=== PATIENT | female | born 1960 | race Native Hawaiian/Other Pacific Islander ===

== ENCOUNTER 2016-06-20 09:28 | Inpatient (IN) | payer OTHER ==
[~2016-06-20 09:28] MED LIST: ALLERGY REL10 MG OR; ALLERGY REL10 MG PO; CITA20TA2 PO; HALO5TAB10 PO; PHEN100C15 PO; TRIHEXYPHEN2 MG PO
== END 2016-07-21 08:00 | disposition still patient (30) ==
LOC: PAVB 09:28
PROVIDERS: ADMIT Internal Medicine
DX: Z51.89 Encounter for other specified aftercare (principal)

== ENCOUNTER 2016-07-21 09:00 | Inpatient (IN) | payer OTHER | END 2016-08-21 10:16 | disposition still patient (30) | LOC: PAVB 09:00 | PROVIDERS: ADMIT Internal Medicine | DX: Z51.89 Encounter for other specified aftercare (principal) ==

== ENCOUNTER 2016-07-30 12:41 | Outpatient (CLI) | payer OTHER | END 2016-07-30 19:16 | disposition home or self-care (01) | LOC: LAB 12:41 | DX: D51.8 Other vitamin B12 deficiency anemias (principal) | CPT/HCPCS: 36415; 82607 ==

== ENCOUNTER 2016-08-21 10:40 | Inpatient (IN) | payer OTHER | END 2016-09-18 09:45 | disposition still patient (30) | LOC: PAVB 10:40 | PROVIDERS: ADMIT Internal Medicine | DX: Z51.89 Encounter for other specified aftercare (principal) ==

== ENCOUNTER 2016-09-18 10:29 | Inpatient (IN) | payer OTHER | END 2016-10-19 08:06 | disposition still patient (30) | LOC: PAVB 10:29 | PROVIDERS: ADMIT Internal Medicine | DX: Z51.89 Encounter for other specified aftercare (principal) ==

== ENCOUNTER 2016-10-19 09:26 | Inpatient (IN) | payer OTHER | END 2016-11-18 09:10 | disposition still patient (30) | LOC: PAVB 09:26 | PROVIDERS: ADMIT Internal Medicine | DX: Z51.89 Encounter for other specified aftercare (principal) ==

== ENCOUNTER 2016-11-06 04:56 | Outpatient (CLI) | payer OTHER | END 2016-11-06 19:02 | disposition home or self-care (01) | LOC: LAB 04:56 | DX: Z16.24 Resistance to multiple antibiotics (principal) | CPT/HCPCS: 87081 ==

== ENCOUNTER 2016-11-18 09:59 | Inpatient (IN) | payer OTHER | END 2016-12-19 09:34 | disposition still patient (30) | LOC: PAVB 09:59 | PROVIDERS: ADMIT Internal Medicine | DX: Z51.89 Encounter for other specified aftercare (principal) ==

== ENCOUNTER 2016-12-19 09:59 | Inpatient (IN) | payer OTHER | END 2017-01-18 15:21 | disposition still patient (30) | LOC: PAVB 09:59 | PROVIDERS: ADMIT Internal Medicine | DX: Z51.89 Encounter for other specified aftercare (principal) ==

== ENCOUNTER 2017-01-13 16:33 | Outpatient (CLI) | payer OTHER | END 2017-01-13 17:40 | disposition home or self-care (01) | LOC: RAD 16:33 | DX: M25.551 Pain in right hip (principal) ==

== ENCOUNTER 2017-01-18 15:40 | Inpatient (IN) | payer OTHER | END 2017-02-18 09:43 | disposition still patient (30) | LOC: PAVB 15:40 | PROVIDERS: ADMIT Internal Medicine | DX: Z51.89 Encounter for other specified aftercare (principal) ==

== ENCOUNTER 2017-01-20 11:15 | Outpatient (CLI) | payer OTHER ==
[2017-01-20 11:37] LABS: PLATELET COUNT 283 K/uL (152-353)
[2017-01-20 11:48] LABS: SODIUM 144 mmol/L (136-145)
== END 2017-01-20 12:15 | disposition home or self-care (01) ==
LOC: LAB 11:15
PROVIDERS: Internal Medicine
DX: I10 Essential (primary) hypertension (principal); R56.9 Unspecified convulsions
CPT/HCPCS: 80053; 80185; 82607; 85027

== ENCOUNTER 2017-02-18 10:33 | Inpatient (IN) | payer OTHER | END 2017-03-21 08:41 | disposition still patient (30) | LOC: PAVB 10:33 | PROVIDERS: ADMIT Internal Medicine | DX: Z51.89 Encounter for other specified aftercare (principal) ==

== ENCOUNTER 2017-02-22 05:05 | Outpatient (CLI) | payer OTHER | END 2017-02-22 06:05 | disposition home or self-care (01) | LOC: LAB 05:05 | DX: Z51.81 Encounter for therapeutic drug level monitoring (principal) | CPT/HCPCS: 80185 ==

== ENCOUNTER 2017-03-21 09:12 | Inpatient (IN) | payer OTHER | END 2017-04-20 10:34 | disposition still patient (30) | LOC: PAVB 09:12 | PROVIDERS: ADMIT Internal Medicine | DX: Z51.89 Encounter for other specified aftercare (principal) ==

== ENCOUNTER 2017-03-27 15:33 | Outpatient (CLI) | payer OTHER | END 2017-03-27 16:35 | disposition home or self-care (01) | LOC: RAD 15:33 | DX: M25.572 Pain in left ankle and joints of left foot (principal); M79.89 Other specified soft tissue disorders ==

== ENCOUNTER 2017-04-20 10:39 | Inpatient (IN) | payer OTHER | END 2017-05-21 12:57 | disposition still patient (30) | LOC: PAVB 10:39 | PROVIDERS: ADMIT Internal Medicine ==

== ENCOUNTER 2017-05-21 13:41 | Inpatient (IN) | payer OTHER | END 2017-06-20 09:20 | disposition still patient (30) | LOC: PAVB 13:41 | PROVIDERS: ADMIT Internal Medicine ==

== ENCOUNTER 2017-06-20 09:40 | Inpatient (IN) | payer OTHER | END 2017-07-21 09:31 | disposition still patient (30) | LOC: PAVB 09:40 | PROVIDERS: ADMIT Internal Medicine ==

== ENCOUNTER 2017-07-21 10:02 | Inpatient (IN) | payer OTHER | END 2017-08-21 09:49 | disposition still patient (30) | LOC: PAVB 10:02 | PROVIDERS: ADMIT Internal Medicine ==

== ENCOUNTER 2017-07-24 06:54 | Outpatient (CLI) | payer OTHER ==
[2017-07-24 08:39] LABS: POTASSIUM 4.2 mmol/L (3.6-5.2); SODIUM 143 mmol/L (136-145)
[2017-07-24 11:07] LABS: PLATELET COUNT 252 K/uL (152-353)
== END 2017-07-24 22:39 | disposition home or self-care (01) ==
LOC: LAB 06:54
PROVIDERS: Internal Medicine
DX: I10 Essential (primary) hypertension (principal); R56.9 Unspecified convulsions
CPT/HCPCS: 80053; 80185; 82607; 85027

== ENCOUNTER → 2017-08-13 11:00 | Outpatient (CLI) | payer OTHER | END | disposition home or self-care (01) | LOC: LAB 11:00 | DX: R50.9 Fever, unspecified (principal) | CPT/HCPCS: 87804 ==

== ENCOUNTER 2017-08-21 10:36 | Inpatient (IN) | payer OTHER | END 2017-09-18 09:19 | disposition still patient (30) | LOC: PAVB 10:36 | PROVIDERS: ADMIT Internal Medicine ==

== ENCOUNTER 2017-09-18 09:54 | Inpatient (IN) | payer OTHER | END 2017-10-19 08:00 | disposition still patient (30) | LOC: PAVB 09:54 | PROVIDERS: ADMIT Internal Medicine ==

== ENCOUNTER 2017-10-19 09:00 | Inpatient (IN) | payer OTHER | END 2017-11-18 09:04 | disposition still patient (30) | LOC: PAVB 09:00 | PROVIDERS: ADMIT Internal Medicine ==

== ENCOUNTER 2017-11-18 09:31 | Inpatient (IN) | payer OTHER | END 2017-12-19 08:53 | disposition still patient (30) | LOC: PAVB 09:31 | PROVIDERS: ADMIT Internal Medicine ==

== ENCOUNTER 2017-12-19 09:18 | Inpatient (IN) | payer OTHER | END 2018-01-18 14:19 | disposition still patient (30) | LOC: PAVB 09:18 | PROVIDERS: ADMIT Internal Medicine ==

== ENCOUNTER 2018-01-18 14:50 | Inpatient (IN) | payer OTHER | END 2018-02-18 08:00 | disposition still patient (30) | LOC: PAVB 14:50 | PROVIDERS: ADMIT Internal Medicine ==

== ENCOUNTER 2018-01-22 12:01 | Outpatient (CLI) | payer OTHER ==
[2018-01-22 12:43] LABS: PLATELET COUNT 231 K/uL (152-353)
[2018-01-22 14:16] LABS: POTASSIUM 4.4 mmol/L (3.6-5.2)
== END 2018-01-22 19:39 | disposition home or self-care (01) ==
LOC: LAB 12:01
PROVIDERS: Internal Medicine
DX: I10 Essential (primary) hypertension (principal); R56.9 Unspecified convulsions
CPT/HCPCS: 80053; 80185; 82607; 85027

== ENCOUNTER 2018-02-18 09:00 | Inpatient (IN) | payer OTHER | END 2018-03-21 10:18 | disposition still patient (30) | LOC: PAVB 09:00 | PROVIDERS: ADMIT Internal Medicine ==

== ENCOUNTER 2018-03-13 14:06 | Outpatient (CLI) | payer OTHER | END 2018-03-13 22:47 | disposition home or self-care (01) | LOC: RAD 14:06 | DX: M54.5 Low back pain (principal) ==

== ENCOUNTER 2018-03-21 10:59 | Inpatient (IN) | payer OTHER | END 2018-04-20 09:20 | disposition still patient (30) | LOC: PAVB 10:59 | PROVIDERS: ADMIT Internal Medicine ==

== ENCOUNTER 2018-04-20 10:09 | Inpatient (IN) | payer OTHER | END 2018-05-21 08:47 | disposition still patient (30) | LOC: PAVB 10:09 | PROVIDERS: ADMIT Internal Medicine ==

== ENCOUNTER 2018-05-21 09:49 | Inpatient (IN) | payer OTHER | END 2018-06-20 08:32 | disposition still patient (30) | LOC: PAVB 09:49 | PROVIDERS: ADMIT Internal Medicine ==

== ENCOUNTER 2018-06-08 14:59 | Outpatient (CLI) | payer OTHER | END 2018-06-08 19:53 | disposition home or self-care (01) | LOC: RAD 14:59 | DX: N95.8 Other specified menopausal and perimenopausal disorders (principal) ==

== ENCOUNTER 2018-06-20 09:14 | Inpatient (IN) | payer OTHER | END 2018-07-21 11:05 | disposition still patient (30) | LOC: PAVB 09:14 | PROVIDERS: ADMIT Internal Medicine ==

== ENCOUNTER 2018-07-21 11:23 | Inpatient (IN) | payer OTHER | END 2018-08-21 10:54 | disposition still patient (30) | LOC: PAVB 11:23 | PROVIDERS: ADMIT Internal Medicine ==

== ENCOUNTER 2018-07-22 05:35 | Outpatient (CLI) | payer OTHER ==
[2018-07-22 06:25] LABS: PLATELET COUNT 249 K/uL (152-353)
[2018-07-22 06:43] LABS: POTASSIUM 4.4 mmol/L (3.6-5.2)
== END 2018-07-22 21:29 | disposition home or self-care (01) ==
LOC: LAB 05:35
PROVIDERS: Internal Medicine
DX: R56.9 Unspecified convulsions (principal); E83.51 Hypocalcemia; I10 Essential (primary) hypertension
CPT/HCPCS: 80053; 80185; 82306; 85027

== ENCOUNTER 2018-08-21 11:12 | Inpatient (IN) | payer OTHER | END 2018-09-18 10:19 | disposition still patient (30) | LOC: PAVB 11:12 | PROVIDERS: ADMIT Internal Medicine ==

== ENCOUNTER 2018-09-18 11:06 | Inpatient (IN) | payer OTHER | END 2018-10-19 10:39 | disposition still patient (30) | LOC: PAVB 11:06 | PROVIDERS: ADMIT Internal Medicine ==

== ENCOUNTER 2018-10-19 11:18 | Inpatient (IN) | payer OTHER | END 2018-11-18 11:16 | disposition still patient (30) | LOC: PAVB 11:18 | PROVIDERS: ADMIT Internal Medicine ==

== ENCOUNTER 2018-11-13 14:23 | Outpatient (CLI) | payer OTHER | END 2018-11-13 22:42 | disposition home or self-care (01) | LOC: RAD 14:23 | DX: M25.551 Pain in right hip (principal); S70.01XA Contusion of right hip, initial encounter; W19.XXXA Unspecified fall, initial encounter ==

== ENCOUNTER 2018-11-18 12:21 | Inpatient (IN) | payer OTHER | END 2018-12-19 08:38 | disposition still patient (30) | LOC: PAVB 12:21 | PROVIDERS: ADMIT Internal Medicine | DX: Z51.89 Encounter for other specified aftercare (principal) ==

== ENCOUNTER 2018-12-09 04:45 | Outpatient (CLI) | payer OTHER | END 2018-12-09 20:00 | disposition home or self-care (01) | LOC: LAB 04:45 | PROVIDERS: Internal Medicine | DX: E78.49 Other hyperlipidemia (principal) | CPT/HCPCS: 36415; 80061 ==

== ENCOUNTER 2018-12-19 09:21 | Inpatient (IN) | payer OTHER | END 2019-01-18 09:37 | disposition still patient (30) | LOC: PAVB 09:21 | PROVIDERS: ADMIT Internal Medicine ==

== ENCOUNTER 2019-01-18 11:23 | Inpatient (IN) | payer OTHER | END 2019-02-18 10:35 | disposition still patient (30) | LOC: PAVB 11:23 | PROVIDERS: ADMIT Internal Medicine ==

== ENCOUNTER 2019-01-19 03:57 | Outpatient (CLI) | payer OTHER ==
[2019-01-19 06:33] LABS: PLATELET COUNT 211 K/uL (152-353); POTASSIUM 3.9 mmol/L (3.6-5.2)
== END 2019-01-19 19:05 | disposition home or self-care (01) ==
LOC: LAB 03:57
PROVIDERS: Internal Medicine
DX: I10 Essential (primary) hypertension (principal); D53.1 Other megaloblastic anemias, not elsewhere classified; G40.89 Other seizures
CPT/HCPCS: 80053; 80185; 82306; 82607; 85027

== ENCOUNTER 2019-02-18 11:13 | Inpatient (IN) | payer OTHER | END 2019-03-21 16:25 | disposition still patient (30) | LOC: PAVB 11:13 | PROVIDERS: ADMIT Internal Medicine ==

== ENCOUNTER 2019-03-18 03:59 | Outpatient (CLI) | payer OTHER | END 2019-03-18 22:29 | disposition home or self-care (01) | LOC: LAB 03:59 | DX: R42 Dizziness and giddiness (principal); R73.9 Hyperglycemia, unspecified | CPT/HCPCS: 82947; 83036 ==

== ENCOUNTER 2019-03-18 07:17 | Inpatient (IN) | payer OTHER ==
[2019-03-18] VITALS (28 sets, daily range): BP systolic 72–125; BP diastolic 38–75; TEMP 97.2–98.8; Ht 165.1 cm; Wt 70.9 kg
[~2019-03-18] VITALS: Ht 165.1 cm; Wt 70.9 kg
[2019-03-18 09:40] LABS: PLATELET COUNT 457 K/uL (152-353)
[2019-03-18 09:50] LABS: POTASSIUM 5.5 mmol/L (3.6-5.2)
--- NOTE | 2019-03-18 10:10 | NUR ---
CRITICAL LAB- GLUCOSE [address] JOSE NOTIFIED. NO ORDERS AT THIS TIME.
--- NOTE | 2019-03-18 12:00 | NUR ---
RECIEVED REPORT FROM SRINIVAS HUITRON RN. PT HAD BEEN IN PCU MOVED TO ICU BED 1. ANNY HERE SITTING WITH PATIENT. IV FLUIDS INFUSING WITHOUT DIFFICULTY. AT 200 ML HR INSULIN DRIP AT 12 UNITS HR. LAB HERE CHECKED BLOOD SUGAR 771. DR JOSE HERE CHECKING ON PATIENT, REPORTED BLOOD SUGAR. VITAL SIGNS IMPROVING B/P 91/58 P90.
--- NOTE | 2019-03-18 13:26 | NUR ---
0810-RECEIVED 59 Y/O WF PATIENT OF DR. JOSE ACCOMPANIED BY STAFF FROM [facility] VIA BED. PT IS OBTUNDED, RESPONDS ONLY TO PAINFUL STIMULI, TACHYPNIC @30 BREATHS PER MINUTE, TACHYCARDIC HR@108, HYPOTENSIVE 72/38. ORDERS RECEIVED FROM LAB RECEIVED FROM [facility] BLOOD GLUCOSE FROM VENOUS STICK 1019 0830-IV STARTED AND BLOOD DRAWN. INSULIN PROTOCOL INITIATED WITH VERBAL FROM . INSULIN DRIP STARTED AT 12UTS/HR. NS STARTED AT 200ML/HR 0845-"HIGH"READING ON FSBS MACHINE-VENOUS BLOOD SENT TO LAB FOR GLUCOSE AND OTHER LABS ORDERED. BLOOD GLUCOSE 1028-VITALS NOTED 0900-IVF'S INFUSING, INSULIN DRIP AT 12U/HR INFUSING 0915-BOLUS NS@ 500CL/HR STARTED-ABG ORDERED 0930-"HIGH" FSBS-PT REMAINS LETHARGIC AND UNRESPONSIVE AT THIS TIME 0945-FAMILY AT BEDSIDE-VITALS NOTED 1000- ASSESSING THE PATIENT-IVF'S INFUSING-NO CHANGE IN NEUROLOGICAL STATUS 1020-ABG RESULTS BACK,VERBAL ORDER FOR 1 AMP BICARB RECEIVED-VITALS NOTED 1038-BICARB GIVEN. 1100-BLOOD GLUCOSE 1040; NOTIFIED.NO NEW ORDERS AT THIS TIME 1130-"HIGH"FSBS-VENOUS SAMPLE DRAWN VITALS NOTED. PATIENT REPOSITIONING SELF IN BED, RESPONDS TO VERBAL STIMULI FROM FAMILY AT THIS TIME-OPENS EYES, NO VERBAL RESPONSE.VITALS NOTED 1145-REPORT GIVEN TO ANATOLIY CORONADO RN
--- NOTE | 2019-03-18 13:32 | NUR ---
PATIENT BEGINNING TO MOVE AROUND MORE. LAB CALLED BLOOD SUGAR RESULTS 669, INSULIN DRIP CONTINUES AT 12 UNITS HR. NS AT 200. ASSISTED PT WITH POSITION CHANGE.
--- NOTE | 2019-03-18 15:24 | NUR ---
PATIENT CONTINUES RESTING IN BED MOVING AROUND A LITTLE MORE. IV FLUIDS CONTINUE INSULIN DRIP CONTINUES AT 12 UNIT HR BLOOD SUGAR 596. NS CONTINUES AT 200 ML HR B/P 93/67
--- NOTE | 2019-03-18 16:25 | NUR ---
CALLED TO DR JOSE RECIEVED NEW ORDERS, REPORT CRITICAL LAB. PATIENT RESTING IN BED MOVING MORE. B/P 113/74, P 100
--- NOTE | 2019-03-18 16:55 | NUR ---
LABS DRAW AGAIN CHECKING BLOOD SUGAR, HAD TO REPEAT CMP RECHECK RESULTS. WILL CALL TO DR JOSE.
[2019-03-18 17:08] LABS: POTASSIUM 3.3 mmol/L (3.6-5.2)
--- NOTE | 2019-03-18 18:01 | NUR ---
CALLED CRITICAL LABS TO DR DMAON MARIN NEW ORDERDS, NOTIFIED PHARMGely MILTON WITH [facility]. CHECK PATIENT SAT UP IN BED TO SEE HOW SHE WAS ABOUT TAKING PO. WILL NOT TAKE ANYTHING BY MOUTH, WILL HAVE TO GIVE MEDS BY IV.
--- NOTE | 2019-03-18 18:44 | NUR ---
SPOKE WITH [facility] BRADY D RECIEVD ORDERS STARTED POTASSIUM 20 MEQ K RIDER TO RUN OVER 2 HRS. NS CHANGED TO 100 ML HR. B/P 109/65, INSULIN DRIP CONTINUES AT 12 UNITS HR BLOOD SUGAR 367. PT RESLESS AT TIMES TURNING IN BED OPENS EYES WHEN NAME CALLED.
--- NOTE | 2019-03-18 19:00 | NUR ---
BS CHECKED PER LAB. PT IS RESTLESS. INSULIN DRIP AT 12 UNITS/HR.
--- NOTE | 2019-03-18 20:00 | NUR ---
BS CHECKED PER LAB. PT IS RESPONSIVE. VITAL SIGNS STABLE.
--- NOTE | 2019-03-18 20:37 | NUR ---
INSULIN DRIP WAS DISCONTINUED. MONITORING BS. PT IS RESPONSIVE. VS STABLE.
--- NOTE | 2019-03-18 21:19 | NUR ---
ANNY CALLED TO CHECK ON PT.
--- NOTE | 2019-03-18 22:00 | NUR ---
BLOOD SUGAR IS 248.
--- NOTE | 2019-03-18 23:00 | NUR ---
BLOOD SUGAR IS 277.
[2019-03-19] VITALS (20 sets, daily range): BP systolic 107–143; BP diastolic 60–94; TEMP 97.6–100.6
--- NOTE | 2019-03-19 | NUR ---
BLOOD SUGAR IS 293.
--- NOTE | 2019-03-19 03:40 | NUR ---
BLOOD SUGAR IS 284.
--- NOTE | 2019-03-19 03:40 | NUR ---
PT IS RESPONSIVE TO VERBAL AND TACTILE STIMULATION. PT IS RESTING. CM WITH SR. BP 134/78.
[2019-03-19 05:23] LABS: PLATELET COUNT 235 K/uL (152-353)
[2019-03-19 05:42] LABS: POTASSIUM 3.4 mmol/L (3.6-5.2)
--- NOTE | 2019-03-19 08:00 | NUR ---
PT LYING IN BED RIGHT SIDE POSTION IN MD STARR AT BEDSIDE, NEW ORDERS GIVEN, NOTED AND CARRIED OUT.
--- NOTE | 2019-03-19 08:30 | NUR ---
PT LYING IN BED SUPINE POSTION IN NAD, CAREGIVER AT BEDSIDE, PT ABLE TO VOCALIZE WITH CARGIVER AND VIA PHONE WITH FRIEND.
--- NOTE | 2019-03-19 09:00 | NUR ---
BREAKFAST ARRIVED, ATTEMPTED TO WAKE PATIENT AND ASSIST WITH BREAKFAST, PT VERBALIZED SHE DOESN'T WANT BREAKFAST. WILL ATTEMPT AT A LATTER TIME. PT WENT BACK TO SLEEP.
--- NOTE | 2019-03-19 11:30 | NUR ---
PASTOR MTZ IN TO SEE PT, HOME THEATER SPECIALIST AT BED SIDE, PT SLEEPING ON RIGHT SIDE IN NAD. PT GIVEN STUFFED BEAR AND PRAYERS.
--- NOTE | 2019-03-19 12:30 | NUR ---
PT VERY LETARGIC, BS CHECKED 338, 8 UNITS NOVOLOG GIVEN SQ. NOTIFIED, MONITOR CLOSE FOR RESULTS.
--- NOTE | 2019-03-19 12:50 | NUR ---
THIS PATIENT HAS 2 DISCHARGE PLANNING D/T TO FIRST ONE ENTERED WAS ON THE WRONG PATIENT.
--- NOTE | 2019-03-19 14:00 | NUR ---
PT LYINING IN BED RESTING WITH EYES CLOSED IN NAD. ANNY AT BEDSIDE, AT BEDSIDE.
[2019-03-19 16:27] LABS: POTASSIUM 4.1 mmol/L (3.6-5.2)
--- NOTE | 2019-03-19 19:35 | NUR ---
RESTING IN BED WITH EYES CLOSED, NO S/S OF PAIN OR DISTRESS NOTED, WILL MONITOR CLOSELY, RAILS UP X3, BED IN LOW POSITION, IV INTACT WITH FLUID ONGOING, GORDON PATENT DRAINING TO BEDSIDE, VITALS BEING MONITORED.
--- NOTE | 2019-03-19 22:20 | NUR ---
PT AWAKE LAYING IN BED WITH NO DISTRESS NOTED, IV INTACT, GORDON PATENT, VITALS BEING MONITORED, GAVE PT FEW SIPS OF DRINK, WILL MONITOR CLOSELY, RAILS UP X3, BED IN LOW POSITION.
[2019-03-20] VITALS (23 sets, daily range): BP systolic 123–159; BP diastolic 72–100; TEMP 98.2–100.9
--- NOTE | 2019-03-20 00:10 | NUR ---
RESTING IN BED WITH EYES CLOSED, NO S/S OF PAIN OR DISTRESS NOTED, IV INTACT TO R WRIST WITH 1/2 NS INFUSING AT 100ML/HR, RESP RATE IN MID 20s NONLABORED, ON ROOM AIR WITH SAT OF 97-98%, GORDON PATENT DRAINING TO BEDSIDE, VITALS BEING MONITORED AND PHYSICAL EDUCATION SPECIALIST IN USE, WILL MONITOR CLOSELY, RAILS UP X3, BED IN LOW POSITION.
--- NOTE | 2019-03-20 01:30 | NUR ---
GAVE PRN TYLENOL 65MG SUP PER RECTUM, WILL MONITOR TEMP CLOSELY.
--- NOTE | 2019-03-20 02:30 | NUR ---
AXILLARY TEMP IS NOW 100.4 SINCE PRN TYLENOL GIVEN RECTALLY, WILL CONTINUE TO MONITOR CLOSELY.
--- NOTE | 2019-03-20 03:50 | NUR ---
RESTING WITH EYES CLOSED, NO S/S OF DISTRESS NOTED, IV INTACT WITH FLUID ONGOING, VITALS BEING MONITORED, GORDON PATENT DRAINING TO BEDSIDE, TEMP IS NOW 99.3 AXILLARY, PT WANTING SOME "DR. ERIC" GAVE PT FEW SIPS OF DIET DR. ERIC THAT HER FAMILY BROUGHT HER. WILL MONITOR CLOSELY, RAILS UP X3, BED IN LOW POSITION, ENCOURAGED TO CALL NEEDED.
--- NOTE | 2019-03-20 07:00 | NUR ---
PT RESTING QUIETLY WITH EYES CLOSED. NO C/O AT THIS TIME.
--- NOTE | 2019-03-20 09:00 | NUR ---
DR JOSE IN TO SEE PT. FAMILY/GUARDIAN AT FEEDING PT BREAKFAST.
--- NOTE | 2019-03-20 11:30 | NUR ---
PT DRINKING COFFEE WITH THE ASSISTANCE OF FAMILY.
[2019-03-20 11:45] LABS: PLATELET COUNT 150 K/uL (152-353)
[2019-03-20 11:58] LABS: POTASSIUM 4.3 mmol/L (3.6-5.2)
--- NOTE | 2019-03-20 12:14 | NUR ---
PHONE CALL TO DR TIGIST JOSE X2,NO ANSWER. UNABLE TO LEAVE A MESSAGE. WILL CALL BACK TO REPORT LABS. PT ASLEEP, AWAKENS WHEN IS HER TEMP IS IS TAKEN & SAYS 'COFFEE, I WANT COFFEE.' BEFORE COFFEE IS GIVEN TO PT,PT BACK TO SLEEP.
--- NOTE | 2019-03-20 12:30 | NUR ---
PT MEDICATED WITH NOVOLOG 8U SQ PER PROTOCOL.
--- NOTE | 2019-03-20 13:24 | NUR ---
PT AWAKE & DRINKING COFFEE WITH ASSISTANCE. REFUSES TO EAT ANY LUNCH. REFUSES TO GET UP IN A CHAIR. PT STATES' I DON'T FEEL LIKE IT'. PT DEIES ANY PAIN AT THIS TIME.
--- NOTE | 2019-03-20 15:32 | NUR ---
PHONE CALL TO DR JOSE,'HE HAD RETURNED CALL EARLIER BUT WAS TOLD WE DIDN'T NEED HIM BY THE MED SURG SENIOR GRANT WRITER.'LABS CALLED TO HIM FROM 1205PM. REPORTED TO HIM NOVOLOG 8U GIVEN FOR BS 499. ANION GAP OF 20, BS 499, BUN 57,CREATININE 2.5,CHLORIDE 120,[id number] 13. REPORTED WELL CBC & OTHER LABS ON CMP. REPORTED FSBS AT 1443 OF 413 & RE-CK BS BY LAB 480. NEW ORDERS. URINE FOR KETONES OBTAINED & TO LAB.
--- NOTE | 2019-03-20 17:00 | NUR ---
CAL AREA BACK LEGS FACE BATHED. ADULT BRIEF CHANGED. LINEN CHANGED.
--- NOTE | 2019-03-20 17:08 | NUR ---
PT SITTING UP IN BED, DRINKING COFFEE WITH ASSISTANCE OF FAMILY.
--- NOTE | 2019-03-20 19:30 | NUR ---
PT APPEARS UPSET/AGITATED, REPEATEDLY CALLING FOR STAFF AND GROANING OUT ALMOST CONSTANTLY, DENIES PAIN AND NO ACUTE DISTRESS NOTED, PT REASSURED AND ENCOURAGED TO TRY TO RELAX AND REST SINCE SHE DID NOT SLEEP LAST NIGHT, CONTINUES TO APPEAR UPSET AND CALLING FOR STAFF. B/P UP SOME, 1899 B/P WAS 155/113, AROUND 1919 RECHECKED B/P 159/100. CONTINUES TO BE REASSURED BY STAFF. 1939 PT REMAINS UPSET/AGITATED ACID CLEANER WILL CALL DR. JOSE.
--- NOTE | 2019-03-20 19:45 | NUR ---
SPOKE WITH DR. JOSE ON PHONE ABOUT PT APPEARING AND ACTING UPSET, REMINDED THAT ALL OF PT'S HOME MEDS HAVE NOT BE RESTARTED SINCE ADMIT. NEW ORDER RECEIVED AT THIS TIME WRITTEN(SEE ORDER SHEET).
--- NOTE | 2019-03-20 21:24 | NUR ---
PT REMAINS AWAKE AND SLIGHTLY AGITATED GROANING OUT AND CALLING STAFF FREQUENTLY TO BEDSIDE FOR DRINK OR STATING SHE CAN NOT SLEEP. NO ACUTE DISTRESS NOTED, PT DENIES ANY PAIN, IV INTACT, GORDON PATENT. EXTERMINATOR HELPER WAS ABLE TO GET PT TO TAKE ALL OF HER NIGHT MEDS EXCEPT FOR COLACE, AFTER FIRST FEW PILLS GIVEN PT DID NOT WANT TO TAKE MORE BUT ENCOURAGED PT TO TAKE THEM DUE TO MEDS WERE FOR SEIZURES, PT HOLDING CUP ON HER OWN AND DRINKING DRINK SLOWLY WITH PILLS THEN WOULD STATE SHE COULD NOT REACH DRINK TO HER MOUTH, EXTERMINATOR HELPER ENCOURAGED PT AND REASSURED HER THEN PT STARTED DRINKING DRINK ON HER OWN AGAIN. WILL MONITOR CLOSELY, RAILS UP X3, BED IN LOW POSITION, ENCOURAGED TO CALL NEEDED.
--- NOTE | 2019-03-20 22:30 | NUR ---
PT REMAINS AWAKE AND GROANING OUT AND CALLING FOR STAFF OFTEN, STATES "I CAN NOT SLEEP" OUT LOUD THEN PUBLIC HEALTH REGISTRAR ENCOURAGED PT TO RELAX CLOSE HER EYES AND TRY TO SLEEP A FEW MINUTES LATER PT STATING OUT LOUD AGAIN THAT SHE CAN NOT SLEEP. PUBLIC HEALTH REGISTRAR HAS ASKED PT WHAT IS WRONG MULTIPLE TIMES AND ENCOURAGED PT TO TRY TO REST, NOW PT STATES SHE IS "IN PAIN". WHEN ASKED STATES SHE IS HAVING PAIN IN HER "BACK". GAVE NORCO 5/325MG PO PRN FOR PT'S PAIN. PT TAKING PILL WITH DRINK APPEARS TO HOLD IT IN HER MOUTH THEN SPIT IT OUT ON BED STATING SHE CAN NOT SWALLOW IT. NO S/S OF PROBLEMS NOTED, PILL PLACED IN PUDDING AND PT TOOK PILL WITH NO PROBLEMS, RAILS UP, BED IN LOW POSITION, ENCOURAGED TO CALL NEEDED.
--- NOTE | 2019-03-20 23:15 | NUR ---
PT NOW RESTING QUIETLY IN BED WITH EYES CLOSED, NO S/S OF PAIN OR DISTRESS NOTED, RESP RATE NONLABORED, ON ROOM AIR, IV INTACT WITH FLUID ONGOING, GORDON PATENT DRAINING TO BEDSIDE, VITALS BEING MONITORED, CATTLE STICKER IN USE, WILL MONITOR CLOSELY, RAILS UP X3, BED IN LOW POSITION.
[2019-03-21] VITALS (21 sets, daily range): BP systolic 96–149; BP diastolic 64–98; TEMP 97.9–99.8
--- NOTE | 2019-03-21 02:05 | NUR ---
RESTING QUIETLY IN BED IN POSITION OF COMFORT WITH EYES CLOSED, NO S/S OF PAIN OR DISTRESS NOTED, RESP RATE NONLABORED, ON ROOM AIR WITH SAT OF 96%, GORDON PATENT DRAINING TO BEDSIDE, IV INTACT TO R WRIST WITH 1/2 NS AT 100ML/HR, VITALS BEING MONITORED, PARTS CONTROL CLERK IN USE WITH RATE OF 65 NOTED, WILL MONITOR CLOSELY, RAILS UP X3, BED IN LOW POSITION.
--- NOTE | 2019-03-21 04:50 | NUR ---
PT AWAKE GROANING OUT OFF AND ON AND WANTING HER DRINK, PT C/O PAIN TO HER BACK, GAVE NORCO 5/325MG PO PRN FOR PAIN, WILL MONITOR CLOSELY, RAILS UP X3, BED IN LOW POSITION, IV INTACT, GORDON PATENT, RESP RATE NONLABORED, O2 SAT 95% ON ROOM AIR, VITALS BEING MONITORED, DIRECTOR GEOPHYSICAL LABORATORY IN USE.
--- NOTE | 2019-03-21 05:37 | NUR ---
REMAINS AWAKE BUT NO S/S OF PAIN OR DISTRESS, NO REACTIONS NOTED TO PRN MEDICATION.
--- NOTE | 2019-03-21 05:48 | NUR ---
RESTING WITH EYES CLOSED, NO S/S OF PAIN OR DISTRESS NOTED, WILL MONITOR CLOSELY, RAILS UP, BED IN LOW POSITION.
--- NOTE | 2019-03-21 07:15 | NUR ---
PT RESTING ON R SIDE WITH EYES CLOSED. RESP EVEN & UNLABORED. HEART MONITOR WITH NSR. O2 SAT 95% ON RM AIR, GORDON TO BSD WITH MED YELLOW URINE.
[2019-03-21 09:00] LABS: PLATELET COUNT 138 K/uL (152-353)
--- NOTE | 2019-03-21 09:00 | NUR ---
PT IN HF. FAMILY/GUARDIAN AT BS FEEDING PT BREAKFAST. PT APPEARS MORE ALERT & WHEN ASKED HOW SHA FEELS,PT STATES' I FEEL BETTER'.
[2019-03-21 09:16] LABS: POTASSIUM 3.7 mmol/L (3.6-5.2)
--- NOTE | 2019-03-21 10:00 | NUR ---
PT UP TO CHAIR AT BS WITH ASSISTANCE. SL UNSTEADY & 'WEAK' PER PT.
--- NOTE | 2019-03-21 12:30 | NUR ---
PT REFUSED TO EAT ANYTHING 'JUST MY PINEAPPLE'. PT FED PINEAPPLE CHUNKS. USING SIPPY CUP HERSELF TO DRINK. UP IN CHAIR. ENCOURAGED TO SHIFT SELF IN CHAIR REGULARLY.
--- NOTE | 2019-03-21 13:45 | NUR ---
DR TIGIST JOSE IN TO SEE PT.NEW ORDERS.
--- NOTE | 2019-03-21 15:10 | NUR ---
REPORTED TO DR JOSE PT WITH NO BM SINCE . ABD SOFT BUT SL DISTENDED WITH GOOD BS. 'WILL WAIT & RE-EVALUATE TOMORROW' PER DR JOSE.
--- NOTE | 2019-03-21 16:36 | NUR ---
PT FED SUGAR FREE ICECREAM AT HER REQUEST. PT HAS ALSO DRANK OSCAR TAI OJ. PT HAD ASKED DR JOSE EARLIER IF SHE COULD HAVE OJ & HE SAID,' SURE YOU CAN'.
--- NOTE | 2019-03-21 17:48 | NUR ---
PT WITH FSBS 427, LAB NOTIFIED OF NEED FOR STAT GLUCOSE.
--- NOTE | 2019-03-21 18:35 | NUR ---
BS RE CK PER LAB 428. CALLED TO DR TIGIST JOSE. NEW ORDERS. PT MEDICATED WITH 10U NOVOLOG SQX1. FAMILY/GUARDIAN AT BS FEEDING PT. DISCUSSED BS & DIET. GUARDIAN EXPLAINED TO PT THAT SHE WAS A DIABETIC & WOULD HAVE TO LEARN TO EAT LIKE A DIABETIC & WOULD HAVE TO DRINK MORE WATER.
--- NOTE | 2019-03-21 19:50 | NUR ---
PT AWAKE SITTING UP IN RECLINER/AMARIS CHAIR WATCHING TV WITH FAMILY AT BEDSIDE, NO S/S OF PAIN OR DISTRESS NOTED, RESP RATE NONLABORED/NORMAL, ON ROOM AIR, LUNGS CLEAR TO AUSCULTATION, BS+, GORDON PATENT DRAINING TO BEDSIDE WITH YELLOW URINE NOTED IN BAG, 22G IV INTACT TO R WRIST WITH 1/2 NS INFUSING AT 100ML/HR, RADIAL AND PEDAL PULSES INTACT, VITALS BEING MONITORED, FAMILY AND STAFF ENCOURAGING PT TO DRINK WATER, PT APPEARS TO BE FEELING BETTER TODAY NOTE PT MORE TALKATIVE WITH STAFF TODAY, WILL MONITOR CLOSELY.
--- NOTE | 2019-03-21 21:00 | NUR ---
PT AWAKE SITTING UP IN RECLINER WITH NO DISTRESS NOTED, TALKING WITH STITCHER STANDARD MACHINE, IV INTACT, GORDON PATENT, RESP RATE NONLABORED, DENIES ANY NEEDS. GAVE NIGHTLY MEDS WITH WATER WITH NO PROBLEMS NOTED. ALSO GAVE NORCO 5/325MG PO PRN FOR C/O BACK AND EPIGASTRIC PAIN(ALSO NOTE PT HAVING ALOT OF GAS). PT ASSISTED FROM RECLINER BACK INTO BED, GAIT VERY WEAK, WILL MONITOR CLOSELY, RAILS UP X3, BED IN LOW POSITION, ENCOURAGED TO CALL NEEDED.
[2019-03-22] VITALS (23 sets, daily range): BP systolic 90–147; BP diastolic 56–92; TEMP 97.8–99.5
--- NOTE | 2019-03-22 00:06 | NUR ---
RESTING QUIETLY IN BED WITH EYES CLOSED, NO S/S OF PAIN OR DISTRESS NOTED, RESP RATE NONLABORED, ON ROOM AIR, VITALS STABLE, IV INTACT, GORDON PATENT, WILL MONITOR CLOSELY, RAILS UP, BED IN LOW POSITION.
--- NOTE | 2019-03-22 02:00 | NUR ---
RESTING IN POSITION OF COMFORT WITH EYES CLOSED, NO S/S OF PAIN OR DISTRESS NOTED, GORDON PATENT, IV INTACT WITH FLUID ONGOING, RESP RATE NONLABORED, ON ROOM AIR WITH SAT OF 95-97%, TELEMETRY IN USE WITH RATE IN 70s, PT REPOSITIONS SELF IN BED WITH LITTLE ASSIST, VITALS BEING MONITORED, WILL MONITOR CLOSELY, RAILS UP X3, BED IN LOW POSITION.
--- NOTE | 2019-03-22 04:05 | NUR ---
RESTING OFF AND ON WITH EYES CLOSED, NO S/S OF PAIN OR DISTRESS NOTED, VITALS BEING MONITORED AND ARE STABLE, RESP RATE NONLABORED, GORDON PATENT, IV INTACT WITH FLUID ONGOING, DEPEND DRY, WILL MONITOR CLOSELY, RAILS UP, BED IN LOW POSITION.
--- NOTE | 2019-03-22 05:25 | NUR ---
PT AWAKE WITH NO DISTRESS NOTED, RESP RATE NONLABORED, ON ROOM AIR, GORDON PATENT DRAINING TO BEDSIDE, IV INTACT TO R WRIST WITH 1/2 NS INFUSING AT 100ML/HR, FIRST SAMPLER IN USE WITH RATE OF 80, PT TALKATIVE WITH STAFF WHO ARE AT BEDSIDE AND LAUGHING/JOKING, VITALS BEING MONITORED CLOSELY, RAILS UP X3, BED IN LOW POSITION, NOTE PT HAS BEEN HAVING LOTS OF GAS TONIGHT BUT NO BM SINCE ADMITTED. WILL MONITOR CLOSELY, RAILS UP X3, BED IN LOW POSITION, ENCOURAGED TO CALL NEEDED.
[2019-03-22 05:43] LABS: PLATELET COUNT 112 K/uL (152-353)
[2019-03-22 06:28] LABS: POTASSIUM 3.6 mmol/L (3.6-5.2)
--- NOTE | 2019-03-22 06:45 | NUR ---
SHIFT REPORT GIVEN FROM VENTURA JUARESRN
--- NOTE | 2019-03-22 07:35 | NUR ---
SHIFT ASSESSMENT COMPLETED AT THIS TIME. HERE AT THE BEDSIDE WITH PATIENT.
--- NOTE | 2019-03-22 08:28 | NUR ---
FAMILY PRESENT AT THE BEDSIDE WITH PATIENT.
--- NOTE | 2019-03-22 09:25 | NUR ---
PATIENT GIVEN PO MEDS AT THIS TIME. PATIENT ASSISTED TO BSC AND TO THE BEDSIDE CHAIR AFTER SHE HAD A SMALL HARD BROWN STOOL. PATIENT UNSTEADY ON HER FEET WHEN TRANSFERRING. FALL PRECAUTIONS IN PLACE.
--- NOTE | 2019-03-22 10:19 | NUR ---
PATIENT IS RESTING WITH EYES CLOSED UP IN THE CHAIR WITH BOTH EXTREMITES ELEVATED. NO ACUTE DISTRESS NOTED.
--- NOTE | 2019-03-22 11:20 | NUR ---
NO ACUTE DISTRESS NOTED. PATIENT IS RESTING QUIETLY WITH EYES CLOSED.
--- NOTE | 2019-03-22 18:00 | NUR ---
ANNY, FAMILY FRIEND HERE TALKING TO PATIENT AND ASSISTING PATIENT WITH MEAL. PATIENT ABLE TO EAT 25%.
[2019-03-23] VITALS (8 sets, daily range): BP systolic 98–1126; BP diastolic 54–86; TEMP 98–99
--- NOTE | 2019-03-23 02:51 | NUR ---
PT WAS ASSISTED UP OUT OF BED TO [facility]. PT HAD SMALL FORMED BROWN STOOL. .
--- NOTE | 2019-03-23 04:33 | NUR ---
PT HAS BEEN UP SITTING IN CHAIR. HAS BEEN SITTING UP FOR APPROX 2 HOURS. PT IS WATCHING TELEVISION AND EXPRESSES THAT SHE WANTS TO GO HOME. PT IS VERY TALKATIVE. PT HAS TOLERATED ICE CREAM AND GLUCERNA. PT ALSO DRANK AND COFFEE.
[2019-03-23 05:27] LABS: PLATELET COUNT 100 K/uL (152-353)
[2019-03-23 05:59] LABS: POTASSIUM 3.7 mmol/L (3.6-5.2)
--- NOTE | 2019-03-23 08:01 | NUR ---
AM ASSESSEMENT DONE PATIENT SITTING UP IN CHAIR. ASSISTED WITH AM CARE WAN'T SOMETHING TO EAT. ASKING FOR SWEETS. TALKED WITH PATIENT ABOUT FOODS, AND THAT SHE MAY HAVE TO LIMIT SWEETS. STATED " MY TASTE IS MESSED UP AND IF I DON'T LIKE IT I'M NOT GOING TO EAT EAT IT". PATIENT RECIEVED COFFEE WITH SPLENDA DRINKING OK. BLOOD SUGAR 372 RECIEVED 7 UNITS NOVOLOG SQ. PT OOB BED SITTING UP IN CHAIR.
--- NOTE | 2019-03-23 08:58 | NUR ---
DR JOSE VISITED, CHECKED PATIENT, RECIEVED NEW ORDERS PT TO GO TO MED SURG FLOOR. MRS MCCORMICK HERE VISITING PATIENT.
--- NOTE | 2019-03-23 09:47 | NUR ---
ASSISTED TO BEDSIDE COMMODE. PASSED BM SOFT BROWN UNFORMED STOOL ASSIST WITH CLEAN UP AND BACK TO BED. BACK TO CHAIR TAKING SIPS PO FLUIDS. REPEAT TO PATIENT WHY SHE CAN'T HAVE SWEET DRINKS. REVIEWED DIABETIC DIET.
--- NOTE | 2019-03-23 11:10 | NUR ---
BLOOD SUGAR 356 RECIEVED 7 UNITS NOVOLOG SQ RIGHT ARM . PT UP IN CHAIR READY TO GO TO MED SURG FLOOR. MOVING TO ROOM 1104
--- NOTE | 2019-03-23 11:53 | NUR ---
PATIENT MOVE TO ROOM 1107 VIA CHAIR ORIENTED TO ROOM. CONTINUES UP IN CHAIR, REMINDED PT TO CALL FOR HELP BEFORE TRYING TO GET UP. REPORT TO MED SURG FLOOR. PATIENT DISCHARGED FROM ICU.
--- NOTE | 2019-03-23 15:15 | NUR ---
DR FOX HERE TALKING WITH PATIENT. STARTED IV 22 GA LEFT AC. LABS DRAWN PT STATED THAT SHE FELT A LITTLE SHORT OF BREATH SATS 100% STARTED O2 AT 2L NC. HOB UP. RECIEVED NEW ORDERS.
[2019-03-24] VITALS: BP 125/71; TEMP 98.4
[2019-03-24 04:00] VITALS: BP 107/64; TEMP 99.2
[2019-03-24 05:46] LABS: POTASSIUM 3.4 mmol/L (3.6-5.2)
[2019-03-24 08:00] VITALS: BP 129/72; TEMP 99.2
[2019-03-24 12:00] VITALS: BP 101/72; TEMP 98
--- NOTE | 2019-03-24 15:08 | NUR ---
[facility], PT TOLERATED WELL, REPORT GIVEN TO LIGIA ON B CARDOSO
== END 2019-03-24 13:40 | DRG 638 ==
LOC: PCU 07:17 → ICU 11:00 → MED/SURG 03-23 12:00
PROVIDERS: ADMIT Internal Medicine
DX: E11.00 Type 2 diabetes mellitus with hyperosmolarity without nonketotic hyperglycemic-hyperosmolar coma (NKHHC) (principal); E87.2 Acidosis; N39.0 Urinary tract infection, site not specified; E87.6 Hypokalemia; E83.39 Other disorders of phosphorus metabolism; I95.89 Other hypotension; F78 Other intellectual disabilities
CPT/HCPCS: 36415; 36600; 80048; 80053; 81000; 81002; 82805; 82947; 83735; 84100; 84443; 85027; 87088; 94760; J1815; J1956; J3480; J3490

== ENCOUNTER 2019-03-21 17:04 | Inpatient (IN) | payer OTHER ==
[~2019-03-21] VITALS: Ht 165.1 cm; Wt 70.3 kg
== END 2019-04-20 09:21 | disposition still patient (30) ==
LOC: PAVB 17:04
PROVIDERS: ADMIT Internal Medicine
DX: E11.65 Type 2 diabetes mellitus with hyperglycemia (principal); M62.81 Muscle weakness (generalized); R13.11 Dysphagia, oral phase; R26.2 Difficulty in walking, not elsewhere classified; Z74.1 Need for assistance with personal care; G40.909 Epilepsy, unspecified, not intractable, without status epilepticus; F71 Moderate intellectual disabilities; F33.9 Major depressive disorder, recurrent, unspecified; F41.9 Anxiety disorder, unspecified; G24.01 Drug induced subacute dyskinesia

== ENCOUNTER 2019-04-20 10:27 | Inpatient (IN) | payer OTHER | END 2019-05-21 11:09 | disposition still patient (30) | LOC: PAVB 10:27 | PROVIDERS: ADMIT Internal Medicine ==

== ENCOUNTER 2019-05-21 11:31 | Inpatient (IN) | payer OTHER | END 2019-06-20 08:00 | disposition still patient (30) | LOC: PAVB 11:31 | PROVIDERS: ADMIT Internal Medicine ==

== ENCOUNTER 2019-06-20 11:12 | Inpatient (IN) | payer OTHER | END 2019-07-21 08:34 | disposition still patient (30) | LOC: PAVB 11:12 | PROVIDERS: ADMIT Internal Medicine ==

== ENCOUNTER 2019-06-29 09:38 | Outpatient (CLI) | payer OTHER | END 2019-06-29 20:55 | disposition home or self-care (01) | LOC: LAB 09:38 | DX: E11.9 Type 2 diabetes mellitus without complications (principal) | CPT/HCPCS: 83036 ==

== ENCOUNTER 2019-07-21 08:49 | Inpatient (IN) | payer OTHER | END 2019-08-21 09:56 | disposition still patient (30) | LOC: PAVB 08:49 | PROVIDERS: ADMIT Internal Medicine ==

== ENCOUNTER 2019-07-27 06:24 | Outpatient (CLI) | payer OTHER ==
[2019-07-27 08:07] LABS: PLATELET COUNT 245 K/uL (152-353)
[2019-07-27 09:47] LABS: POTASSIUM 4.4 mmol/L (3.6-5.2)
== END 2019-07-27 17:00 | disposition home or self-care (01) ==
LOC: LAB 06:24
PROVIDERS: Internal Medicine
DX: G40.89 Other seizures (principal); I10 Essential (primary) hypertension; D64.89 Other specified anemias; M19.90 Unspecified osteoarthritis, unspecified site
CPT/HCPCS: 80053; 80185; 82306; 82607; 85027

== ENCOUNTER 2019-08-21 10:33 | Inpatient (IN) | payer OTHER | END 2019-09-19 13:15 | disposition still patient (30) | LOC: PAVB 10:33 | PROVIDERS: ADMIT Internal Medicine ==

== ENCOUNTER 2019-09-19 13:57 | Inpatient (IN) | payer OTHER | END 2019-10-20 09:41 | disposition still patient (30) | LOC: PAVB 13:57 | PROVIDERS: ADMIT Internal Medicine ==

== ENCOUNTER 2019-09-23 04:53 | Outpatient (CLI) | payer OTHER | END 2019-09-23 21:28 | disposition home or self-care (01) | LOC: LAB 04:53 | DX: E11.65 Type 2 diabetes mellitus with hyperglycemia (principal) | CPT/HCPCS: 83036 ==

== ENCOUNTER 2019-10-20 10:23 | Inpatient (IN) | payer OTHER | END 2019-11-19 09:02 | disposition still patient (30) | LOC: PAVB 10:23 | PROVIDERS: ADMIT Internal Medicine ==

== ENCOUNTER 2019-11-19 10:04 | Inpatient (IN) | payer OTHER | END 2019-12-20 09:11 | disposition still patient (30) | LOC: PAVB 10:04 | PROVIDERS: ADMIT Internal Medicine | CPT/HCPCS: 87635; U0002 ==

== ENCOUNTER 2019-12-20 10:00 | Inpatient (IN) | payer OTHER | END 2020-01-19 10:20 | disposition still patient (30) | LOC: PAVB 10:00 | PROVIDERS: ADMIT Internal Medicine | CPT/HCPCS: 87635; U0002 ==

== ENCOUNTER 2019-12-21 05:52 | Outpatient (CLI) | payer OTHER | END 2019-12-21 19:05 | disposition home or self-care (01) | LOC: LAB 05:52 | DX: E11.65 Type 2 diabetes mellitus with hyperglycemia (principal) | CPT/HCPCS: 83036 ==

== ENCOUNTER 2020-01-19 08:40 | Outpatient (CLI) | payer OTHER | END 2020-01-19 22:03 | disposition home or self-care (01) | LOC: LAB 08:40 | PROVIDERS: Internal Medicine | DX: E78.49 Other hyperlipidemia (principal); E11.9 Type 2 diabetes mellitus without complications | CPT/HCPCS: 80061 ==

== ENCOUNTER 2020-01-19 11:03 | Inpatient (IN) | payer OTHER | END 2020-02-19 09:16 | disposition still patient (30) | LOC: PAVB 11:03 | PROVIDERS: ADMIT Internal Medicine | CPT/HCPCS: 87635; U0002 ==

== ENCOUNTER 2020-01-20 06:43 | Outpatient (CLI) | payer OTHER ==
[2020-01-20 09:09] LABS: POTASSIUM 4.3 mmol/L (3.6-5.2)
[2020-01-20 09:53] LABS: PLATELET COUNT 223 K/uL (152-353)
== END 2020-01-20 19:52 | disposition home or self-care (01) ==
LOC: LAB 06:43
PROVIDERS: Internal Medicine
DX: D53.1 Other megaloblastic anemias, not elsewhere classified (principal); I10 Essential (primary) hypertension; E78.49 Other hyperlipidemia; G24.01 Drug induced subacute dyskinesia; F20.89 Other schizophrenia
CPT/HCPCS: 80053; 80185; 82306; 82607; 85027

== ENCOUNTER 2020-02-19 09:38 | Inpatient (IN) | payer OTHER | END 2020-03-21 12:04 | disposition still patient (30) | LOC: PAVB 09:38 | PROVIDERS: ADMIT Internal Medicine | CPT/HCPCS: 87635; G2023; U0003 ==

== ENCOUNTER 2020-03-21 13:00 | Inpatient (IN) | payer OTHER | END 2020-04-20 11:05 | disposition still patient (30) | LOC: PAVB 13:00 | PROVIDERS: ADMIT Internal Medicine ==

== ENCOUNTER 2020-04-20 13:44 | Inpatient (IN) | payer OTHER | END 2020-05-21 08:00 | disposition still patient (30) | LOC: PAVB 13:44 | PROVIDERS: ADMIT Internal Medicine ==

== ENCOUNTER 2020-05-21 09:00 | Inpatient (IN) | payer OTHER | END 2020-06-20 09:59 | disposition still patient (30) | LOC: PAVB 09:00 | PROVIDERS: ADMIT Internal Medicine; ATTEND Internal Medicine ==

== ENCOUNTER 2020-06-09 14:01 | Outpatient (CLI) | payer OTHER | END 2020-06-09 19:23 | disposition home or self-care (01) | LOC: RAD 14:01 | PROVIDERS: ATTEND Internal Medicine | DX: M19.90 Unspecified osteoarthritis, unspecified site (principal); N95.8 Other specified menopausal and perimenopausal disorders; Z13.820 Encounter for screening for osteoporosis ==

== ENCOUNTER 2020-06-20 11:08 | Inpatient (IN) | payer OTHER | END 2020-07-21 09:03 | disposition still patient (30) | LOC: PAVB 11:08 | PROVIDERS: ADMIT Internal Medicine; ATTEND Internal Medicine ==

== ENCOUNTER 2020-07-21 09:24 | Inpatient (IN) | payer OTHER | END 2020-08-21 14:56 | disposition still patient (30) | LOC: PAVB 09:24 | PROVIDERS: ADMIT Internal Medicine; ATTEND Internal Medicine ==

== ENCOUNTER 2020-07-27 07:36 | Outpatient (CLI) | payer OTHER ==
[2020-07-27 12:52] LABS: POTASSIUM 4.2 mmol/L (3.6-5.2)
[2020-07-27 13:50] LABS: PLATELET COUNT 207 K/uL (152-353)
== END 2020-07-27 21:08 | disposition home or self-care (01) ==
LOC: LAB 07:36
PROVIDERS: ATTEND Internal Medicine
DX: I10 Essential (primary) hypertension (principal); D53.1 Other megaloblastic anemias, not elsewhere classified; F20.9 Schizophrenia, unspecified; G24.01 Drug induced subacute dyskinesia; E78.49 Other hyperlipidemia
CPT/HCPCS: 80053; 80185; 82306; 82607; 85027

== ENCOUNTER 2020-08-21 15:14 | Inpatient (IN) | payer OTHER | END 2020-09-18 09:55 | disposition still patient (30) | LOC: PAVB 15:14 | PROVIDERS: ADMIT Internal Medicine; ATTEND Internal Medicine ==

== ENCOUNTER 2020-09-18 10:18 | Inpatient (IN) | payer OTHER | END 2020-10-19 10:15 | disposition still patient (30) | LOC: PAVB 10:18 | PROVIDERS: ADMIT Internal Medicine; ATTEND Internal Medicine ==

== ENCOUNTER 2020-09-19 12:29 | Outpatient (CLI) | payer OTHER | END 2020-09-19 20:15 | disposition home or self-care (01) | LOC: LAB 12:29 | PROVIDERS: ATTEND Internal Medicine | DX: E11.65 Type 2 diabetes mellitus with hyperglycemia (principal) | CPT/HCPCS: 83036 ==

== ENCOUNTER 2020-10-09 15:38 | Outpatient (CLI) | payer OTHER | END 2020-10-09 21:00 | disposition home or self-care (01) | LOC: LAB 15:38 | PROVIDERS: ATTEND Internal Medicine | DX: L02.211 Cutaneous abscess of abdominal wall (principal) | CPT/HCPCS: 87070; 87077; 87185; 87186; 87205 ==

== ENCOUNTER 2020-10-19 10:36 | Inpatient (IN) | payer OTHER | END 2020-11-18 10:51 | disposition still patient (30) | LOC: PAVB 10:36 | PROVIDERS: ADMIT Internal Medicine; ATTEND Internal Medicine ==

== ENCOUNTER 2020-11-01 10:50 | Outpatient (CLI) | payer OTHER | END 2020-11-01 21:32 | disposition home or self-care (01) | LOC: RAD 10:50 | PROVIDERS: ATTEND Internal Medicine | DX: M54.5 Low back pain (principal) ==

== ENCOUNTER 2020-11-13 13:34 | Outpatient (CLI) | payer OTHER | END 2020-11-13 22:30 | disposition home or self-care (01) | LOC: LAB 13:34 | PROVIDERS: ATTEND Internal Medicine | DX: L02.211 Cutaneous abscess of abdominal wall (principal) | CPT/HCPCS: 87070; 87077; 87185; 87186; 87205 ==

== ENCOUNTER 2020-11-18 11:10 | Inpatient (IN) | payer OTHER | END 2020-12-19 14:39 | disposition still patient (30) | LOC: PAVB 11:10 | PROVIDERS: ADMIT Internal Medicine; ATTEND Internal Medicine ==

== ENCOUNTER 2020-12-19 15:03 | Inpatient (IN) | payer OTHER | END 2021-01-18 08:00 | disposition still patient (30) | LOC: PAVB 15:03 | PROVIDERS: ADMIT Internal Medicine; ATTEND Internal Medicine ==

== ENCOUNTER 2021-01-18 09:00 | Inpatient (IN) | payer OTHER | END 2021-02-18 08:00 | disposition still patient (30) | LOC: PAVB 09:00 | PROVIDERS: ADMIT Internal Medicine; ATTEND Internal Medicine ==

== ENCOUNTER 2021-01-23 07:46 | Outpatient (CLI) | payer OTHER ==
[2021-01-23 09:38] LABS: POTASSIUM 4.4 mmol/L (3.6-5.2)
[2021-01-23 11:46] LABS: PLATELET COUNT 226 K/uL (152-353)
== END 2021-01-23 19:07 | disposition home or self-care (01) ==
LOC: LAB 07:46
PROVIDERS: ATTEND Internal Medicine
DX: D64.89 Other specified anemias (principal); D53.1 Other megaloblastic anemias, not elsewhere classified; G24.01 Drug induced subacute dyskinesia; I10 Essential (primary) hypertension; E78.49 Other hyperlipidemia; F20.89 Other schizophrenia
CPT/HCPCS: 80053; 80061; 80185; 82306; 82607; 85027

== ENCOUNTER 2021-02-18 09:00 | Inpatient (IN) | payer OTHER | END 2021-03-19 04:00 | disposition E | LOC: PAVB 09:00 | PROVIDERS: ADMIT Internal Medicine; ATTEND Internal Medicine ==

== ENCOUNTER 2021-03-13 10:34 | Outpatient (CLI) | payer OTHER | END 2021-03-13 21:47 | disposition home or self-care (01) | LOC: RAD 10:34 | PROVIDERS: ATTEND Internal Medicine | DX: U07.1 COVID-19 (principal) ==

== ENCOUNTER 2021-03-14 13:28 | Outpatient (CLI) | payer OTHER | END 2021-03-14 19:14 | disposition home or self-care (01) | LOC: RAD 13:28 | PROVIDERS: ATTEND Internal Medicine | DX: U07.1 COVID-19 (principal) ==

== ENCOUNTER 2021-03-16 09:06 | Outpatient (CLI) | payer OTHER | END 2021-03-16 21:57 | disposition home or self-care (01) | LOC: INF 09:06 | PROVIDERS: ATTEND Internal Medicine | DX: Z23 Encounter for immunization (principal); U07.1 COVID-19 ==

== ENCOUNTER 2021-03-16 11:07 | Outpatient (CLI) | payer OTHER ==
[2021-03-16 16:36] LABS: POTASSIUM 4.1 mmol/L (3.6-5.2)
== END 2021-03-16 22:00 | disposition home or self-care (01) ==
LOC: RAD 11:07
PROVIDERS: ATTEND Internal Medicine
DX: U07.1 COVID-19 (principal)
CPT/HCPCS: 80053

== ENCOUNTER 2021-03-16 17:31 | Inpatient (IN) | payer OTHER ==
[~2021-03-16] VITALS: Ht 165.1 cm; Wt 72.6 kg
[2021-03-16 17:31] VITALS: BP 114/63; TEMP 100.7
[2021-03-16 18:38] LABS: PLATELET COUNT 167 K/uL (152-353)
[2021-03-16 19:00] LABS: PARTIAL THROMBOPLASTIN TIME 30.1 SECONDS (24.5-33.6)
[2021-03-16 19:03] LABS: POTASSIUM 4.2 mmol/L (3.6-5.2); SODIUM 141 mmol/L (136-145)
[2021-03-16 20:30] VITALS: BP 114/66
[2021-03-16 22:00] VITALS: BP 114/69
[2021-03-16 23:00] VITALS: BP 112/72
--- NOTE | 2021-03-17 00:35 | NUR ---
PT WAS GIVEN TUSSINEX 5 ML PO. PT WITH COUGH.
[2021-03-17 01:47] VITALS: BP 110/79; TEMP 98.8; Ht 165.1 cm; Wt 72.6 kg
[2021-03-17 04:50] LABS: PLATELET COUNT 158 K/uL (152-353)
[2021-03-17 05:31] VITALS: BP 130/64; TEMP 99.2
[2021-03-17 05:41] LABS: POTASSIUM 4.3 mmol/L (3.6-5.2)
[2021-03-17 13:31] VITALS: BP 120/68; TEMP 98.6
[2021-03-17 17:30] VITALS: BP 121/61; TEMP 98.8
--- NOTE | 2021-03-17 21:11 | NUR ---
PT'S SATS ARE 88-90. PT IS WEARING HIGH FLOW OXYGEN AT 100 PERCENT AND NRB AT 15L. PT POSITIVE FOR COVID. PT IN ROOM 1129 CLOSE TO NURSES STATION. PT IS MENTALLY CHALLAGED. PT IS BEING MONITORING PER TELEMENTRY CONSTANTLY. ROCHELLE NICHOLE COMMODITIES MANAGER IS CONSTANTLY MONITORING PT'S O2 SATS AND HR.
[2021-03-17 21:31] VITALS: BP 121/67; TEMP 101.1
[2021-03-18] VITALS: BP 127/67; TEMP 99.6
[2021-03-18 04:00] VITALS: BP 136/70; TEMP 100.5
--- NOTE | 2021-03-18 04:00 | NUR ---
PT'S O2 SATS ARE 85 PERCENT AT THIS PRESENT TIME. PT HAS REPOSITIONED IN BED. MOVED UP IN BED. POSITIONED PT ON HER RIGHT SIDE. PT WAS GIVEN SIPS OF SPRITE.
--- NOTE | 2021-03-18 05:19 | NUR ---
PT HAS BEEN AWAKE THIS SHIFT. PT'S O2 SATS RANGING FROM 78 TO 85 PERCENT. PT IS USING HIGH FLOW OXYGEN AND NRB MASK. PT WITH CM AND NO ECTOPY NOTED. PT HAS TURNED AND REPOSITIONED EVERY 2 HOURS AND PRN. ENCOURAGING PT TO TURN, MOVE, AND TAKE DEEP BREATHS. MONITORING TEMPERATURE AND PT RECEIVED TYLENOL 500 MG PO AROUND 21:30PM. PT'S FAMILY MEMBER ANNY CHINCHILLA CALLED AND WAS GIVEN UPDATE ON PATIENTS STATUS. DR. KIRK VISITED PT AROUND MIDNIGHT AND NEW ORDER FOR NEBULIZERS WAS GIVEN. PT WAS GIVEN SMART VEST THERAPY. PT WAS GIVEN CPT. PT HAS BEEN DRINKING ORANGE SODA AND WATER THROUGHOUT SHIFT. PT'S BRIEF HAS BEEN CHANGED X3. PT NOTED RED AREA TO PT'S LEFT BUTTOCK. SKIN INTACT. PT COMPLAINED OF NAUSEA 1 EVENT AND WS TREATED WITH ZOFRAN 4 MG IVSP. FAMILY MEMBER ANNY STATED TO THIS NURSE THAT SHE DID NOT WANT PT PLACED ON BIPAP. FAMILY MEMBER AWARE THAT PT HAS LOW 02 SATURATIONS. PT IS DNR STATUS. 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
[2021-03-18 05:55] LABS: POTASSIUM 4.1 mmol/L (3.6-5.2)
[2021-03-18 06:01] LABS: PLATELET COUNT 260 K/uL (152-353)
[2021-03-18 08:00] VITALS: BP 139/69; TEMP 99.3
[2021-03-18 12:00] VITALS: BP 137/77; TEMP 98.4
--- NOTE | 2021-03-18 13:54 | NUR ---
Inserted 16 FR barcenas in patient d/t sob. Patient tolerated with no acute distrress noted. Will continue to monitor.
--- NOTE | 2021-03-18 14:04 | NUR ---
0930- Dr Martinez pulled Zofran, 4mg, iv and administered to patient at this time. Zofran, 4mg, IV is scheduled for patient also.
[2021-03-18 16:00] VITALS: BP 150/78; TEMP 100
[2021-03-18 20:00] VITALS: BP 92/54; TEMP 97.4
--- NOTE | 2021-03-18 20:08 | NUR ---
ROUNDS MADE. PT IS A POSITION OF COMFORT. O2 SAT IS 64 PERCENT. MONIIORING CLOSELY. PT IS DNR STATUS. PT WAS ADMITTED WITH COVID.
--- NOTE | 2021-03-18 20:30 | NUR ---
IV SEDATION MEDICATION IS EMPTY. Nena ERNST RN GOING TO PHARMACY TO GET IT. PTS HEART RATE IS 105. O2 SAT IS 56 PERCERT.
--- NOTE | 2021-03-18 22:30 | NUR ---
SPOKE TO ANNY CHINCHILLA. UPDATED HER ON PT'S STATUS NOW. O2 SAT IS 50-54. PT IS USING HIGH FLOW OXYGEN AND NRB. PT IS COVID POSITIVE. PT IS DNR STATUS. RECEIVING NS AT 75 ML/HR VIA PUMP. GORDON CATHETAR INTACT WITH CLEAR URINE DRAINING. THIS NURSE AT BEDSIDE AT PRESENT TIME.
--- NOTE | 2021-03-18 23:01 | NUR ---
UNABLE TO COMPLETE ASSESSMENT. COMPUTER LOCKED ON ADULT ASSESSMENT.
--- NOTE | 2021-03-18 23:01 | NUR ---
PT REPOSITIONED ON HER RIGHT SIDE. CM WITH HR 87 AND PULSE OX IS 50 PERCENT PER MONITOR.
--- NOTE | 2021-03-18 23:13 | NUR ---
O2 SAT IS 44 PERCENT.
--- NOTE | 2021-03-18 23:42 | NUR ---
PT TOOK SIPS OF SODA.
--- NOTE | 2021-03-18 23:51 | NUR ---
PT WAS GIVEN SODA. PT TOLERATED WELL.
[2021-03-19] VITALS: BP 103/80; TEMP 98.5
--- NOTE | 2021-03-19 01:57 | NUR ---
ANNY CHINCHILLA CALLED AND WAS INFORMED ABOUT PATIENT STATUS.
--- NOTE | 2021-03-19 05:26 | NUR ---
SEE [employer] PAPER. FOR DOCUMENTATION. PT . DR. KIRK WAS NOTIFIED PER JESSICA ERNST RN. DR. KIRK PRONOUNCED. PT'S FAMILY MEMBER ANNY CHINCHILLA WAS NOTIFIED PER DR. KIRK. POSTMORTUM CARE WAS DONE. PT IS NOT A CANIDATE FOR [employer]. PT WAS A POSITIVE COVID.
== END 2021-03-19 06:00 | disposition expired | DRG 177 ==
LOC: ED 17:31 → MED/SURG 20:05
PROVIDERS: Hospitalist; ADMIT Family Medicine; ATTEND Family Medicine
DX: U07.1 COVID-19 (principal); J12.82 Pneumonia due to coronavirus disease 2019; J96.01 Acute respiratory failure with hypoxia; E87.0 Hyperosmolality and hypernatremia; F78 Other intellectual disabilities; E11.9 Type 2 diabetes mellitus without complications; Z23 Encounter for immunization
CPT/HCPCS: 36415; 36600; 80053; 80185; 82550; 82553; 82728; 82805; 83735; 83880; 84484; 85007; 85027; 85379; 85610; 85730; 86140; 93005; 94667; 94668; 94760; 96365; 96366; 96375; 99284; J0456; J1100; J1450; J1815; J2270; J2405